=== PATIENT | male | born 1940 | race Caucasian/White ===

== ENCOUNTER 2019-05-21 17:57 | Emergency (ER) | payer MEDICARE, OTHER ==
[~2019-05-21] VITALS: Ht 162.6 cm; Wt 80.0 kg
[~2019-05-21 17:57] MED LIST: HTN MED; IBUP-1561 PO; METFORMIN PO
[2019-05-21 18:01] VITALS: Ht 162.6 cm; Wt 80.0 kg
[2019-05-21] MEDS ORDERED: ONDANSETRON 4 MG INJ IV STA (18:04)
[2019-05-21] MEDS ORDERED: SOD CHLORIDE 0.9% 1,000 ML IV STA (18:04)
[2019-05-21 21:37] VITALS: BP 135/89; PULSE 80; RESP 16
--- NOTE | 2019-06-04 13:08 | ERD ---
ER Documentation Chief Complaint Chief Complaint etoh intoxication HPI 79-year-old alcoholic brought in by EMS after trip and fall while at a [employer]. He struck his head when he fell but the episode was witnessed and there was no loss of consciousness or seizure activity. Patient had no vomiting, no complaints of chest pain or shortness of breath. Patient admits to drinking alcohol today. Patient was transported here by EMS without further complications ROS All systems reviewed and are negative except as per history of present illness. Medications Home Meds Active Scripts Ibuprofen* (Motrin*) 400 Mg Tab, 400 MG PO Q8 PRN for PAIN AND/OR INFLAMMATION, #30 TAB Prov:KAREN PEPE MD 05/21/19 Reported Medications [Htn Med] No Conflict Check 11/07/11 [Metformin] No Conflict Check, PO 11/07/11 Allergies Allergies: Coded Allergies: No Known Allergy (Unverified , 11/07/11) PMhx/Soc Alcoholism, hypertension, diabetes mellitus History of Surgery: Yes Anesthesia Reaction: No Hx Neurological Disorder: No Hx Respiratory Disorders: No Hx Cardiac Disorders: Yes (HTN, CHOLESTEROL) Hx Psychiatric Problems: No Hx Miscellaneous Medical Probl: Yes (DM ) Hx Alcohol Use: Yes (etoh at this time) Hx Substance Use: Yes (family states he "uses drugs") Hx Tobacco Use: Yes Smoking Status: Former smoker FmHx Family History: diabetes Physical Exam Vitals Per nurse's records Physical Exam GENERAL: Well-developed, well-nourished, well-hydrated, appears intoxicated, afebrile HEENT: Moist mucous membranes, mild right parietal scalp contusion, pink conjunctiva, no cervical spine tenderness or step-off deformities, no goiter, no jaundice or icterus, extraocular movements intact without pain. No submandibular induration, and no pharyngeal erythema NEURO: Alert and oriented 3, cranial nerves II through XII intact bilaterally, pupils equal round reactive to light, no focal deficits or facial asymmetry, sensation intact distally Strength 5/5 in upper and lower extremities bilaterally CARDIAC: Regular rate and rhythm, no murmurs rubs or gallops LUNGS: Clear bilaterally no wheezing crackles or stridor SKIN: Warm and dry to touch, small right parietal scalp contusion, no lacerations, no target lesions EXTREMITIES: No clubbing cyanosis or edema, calves are bilaterally symmetrical, no Homans sign, no popliteal cord sign. Distal pulses equal and bilateral PSYCH: Normal affect without agitation or irritability Results 24 hrs Laboratory Tests Test 05/21/19 18:20 White Blood Count 8.9 10^3/ul Red Blood Count 4.52 10^6/ul Hemoglobin 14.5 g/dl Hematocrit 40.5 % Mean Corpuscular Volume 89.6 fl Mean Corpuscular Hemoglobin 32.1 pg Mean Corpuscular Hemoglobin Concent 35.8 g/dl Red Cell Distribution Width 12.5 % Platelet Count 164 10^3/UL Mean Platelet Volume 11.5 fl Immature Granulocytes % 1.000 % Neutrophils % 66.9 % Lymphocytes % 26.7 % Monocytes % 4.2 % Eosinophils % 0.6 % Basophils % 0.6 % Nucleated Red Blood Cells % 0.0 /100WBC Immature Granulocytes # 0.090 10^3/ul Neutrophils # 6.0 10^3/ul Lymphocytes # 2.4 10^3/ul Monocytes # 0.4 10^3/ul Eosinophils # 0.1 10^3/ul Basophils # 0.1 10^3/ul Nucleated Red Blood Cells # 0.0 10^3/ul Sodium Level 140 mmol/L Potassium Level 3.4 mmol/L Chloride Level 105 mmol/L Carbon Dioxide Level 18 mmol/L Anion Gap 17 Blood Urea Nitrogen 9 mg/dl Creatinine 0.84 mg/dl Est Glomerular Filtrat Rate mL/min mL/min Glucose Level 167 mg/dl Calcium Level 8.6 mg/dl Total Bilirubin 0.7 mg/dl Direct Bilirubin 0.00 mg/dl Indirect Bilirubin 0.7 mg/dl Aspartate Amino Transf (AST/SGOT) 23 IU/L Alanine Aminotransferase (ALT/SGPT) 20 IU/L Alkaline Phosphatase 51 IU/L Troponin I < 0.012 ng/ml B-Type Natriuretic Peptide 49 PG/ML Total Protein 7.8 g/dl Albumin 4.4 g/dl Globulin 3.40 g/dl Albumin/Globulin Ratio 1.29 Lipase 104 U/L Ethyl Alcohol Level 277.0 mg/dl Current Medications Medications Dose Sig/Phil Start Time Status Last (Trade) Ordered Route PRN Stop Time Admin Dose Reason Admin Sodium 1,000 ml @ Q1H STAT 05/21/19 DC 05/21/19 Chloride 1,000 mls/hr IV 18:04 18:21 05/21/19 19:03 Ondansetron 4 mg ONCE STAT 05/21/19 DC 05/21/19 HCl (Zofran IV 18:04 18:30 Inj) 05/21/19 18:05 Procedures/MDM IV line was established patient was placed on surveillance system monitor rhythm strip revealed a sinus rhythm at about 80 bpm with upright P and T waves. Patient was afebrile I administered 1 L normal saline IV, Zofran 4 mg IV. One AP view of the chest performed, read by me reveals no acute infiltrates, normal mediastinum, sharp costophrenic and cardiac borders, no air under the diaphragm. Otherwise unremarkable chest x-ray. CT scan of the brain was performed was negative for acute bleed mass or shift. CBC and electrolytes are normal, liver function tests were normal, troponin was negative, ethanol level elevated at 277 consistent with patient's presentation Patient was observed here for just over 3 hours and his mental status improved, his gait remained stable and he wanted to leave, neurologic exam was repeated by me prior to discharge and there are no focal deficits. Patient's vital signs are normal and he will be discharged. Differential diagnoses considered, included but not limited to acute coronary syndrome, pulmonary embolism, aortic dissection, abdominal aortic aneurysm, sepsis, stroke, meningitis, encephalitis, pneumonia, appendicitis, cholecysti tis, bowel obstruction, pyelonephritis, nephrolithiasis, cystitis, as well as metabolic, hematologic, and electrolyte abnormalities. As well as abscess, cellulitis, fractures, and dislocations. Patient feels much better at this time, and vital signs are normal, symptoms have improved. I did give strict instructions to return to the ED if symptoms continue or worsen, patient will otherwise follow-up with primary care physician. Patient understood instructions and agreed to plan. Disclaimer: Inadvertent spelling and grammatical errors are likely due to EHR/dictation software use and do not reflect on the overall quality of patient care. Also, please note that the electronic time recorded on this note does not necessarily reflect the actual time of the patient encounter. Departure Diagnosis: Primary Impression: Scalp contusion Encounter type: initial encounter Qualified Codes: S00.03XA - Contusion of scalp, initial encounter Additional Impression: Alcohol abuse Condition: Good Patient Instructions: Scalp Contusion With Wake Up, Pulmonary Nodule, Solitary, Alcohol Abuse KAREN PEPE MD Jun 04, 2019 13:08
== END 2019-05-21 21:37 | disposition home or self-care (01) ==
LOC: E/R 17:57
DX: S00.03XA Contusion of scalp, initial encounter (principal); F10.10 Alcohol abuse, uncomplicated; I10 Essential (primary) hypertension; E11.9 Type 2 diabetes mellitus without complications; W01.198A Fall on same level from slipping, tripping and stumbling with subsequent striking against other object, initial encounter; Y92.512 Supermarket, store or market as the place of occurrence of the external cause; Z87.891 Personal history of nicotine dependence
CPT/HCPCS: 70450; 71045; 80053; 80307; 83690; 83880; 84484; 85025; J2405; J7030; 36415; 96361; 96374